=== PATIENT | male | born 1980 | race Caucasian/White ===

== ENCOUNTER → 2020-03-18 | Outpatient (CLI) | payer BC, OTHER ==
[~2020-03-18] MED LIST: AMBIEN 10 MG TA10 MG PO; IMITREX100 MG PO; OMEPRAZOLE 20 M20 M1 PO; ZOLOFT25 MG PO
== END ==
LOC: LAB 07:35 → EDSTATUS 08:57 → LAB 14:57
PROVIDERS: ATTEND Student in an Organized Health Care Education/Training Program
DX: Z01.818 Encounter for other preprocedural examination (principal); Z11.59 Encounter for screening for other viral diseases

== ENCOUNTER 2020-03-23 06:15 | Day surgery (SDC) | payer BC, OTHER ==
[~2020-03-23] VITALS: Ht 188 cm; Wt 137.0 kg
[2020-03-23 07:44] VITALS: BP 145/98
[2020-03-23 09:11] VITALS: BP 145/98
--- NOTE | 2020-03-26 07:31 | O ---
[address] [address] OPERATIVE REPORT Name: DASIA BLOOM Room #: DEP [facility]..#: [id number] Admission: 03/23/20 Attend Phys: Jesse Stahl MD Discharge: 03/23/20 Date of : 84 Report #: [id number] THIS REPORT FOR: cc: Christiane Ayala MD, Karen A. MD McCabe,Jesse Agosto MD ~ CC: Christiane Stahl DATE OF SERVICE: 03/23/2020 SERVICE: Orthopedics. FACILITY: [facility]. SURGEON: Jesse Stahl M.D. [employer]W SUPERVISOR: Melanie Gomez N.P. PREOPERATIVE DIAGNOSES: 1. Left knee pain. 2. Left knee chondromalacia. 3. Left knee parameniscal cyst. POSTOPERATIVE DIAGNOSES: 1. Left knee pain. 2. Left knee chondromalacia. 3. Left knee parameniscal cyst. 4. Left knee medial plica. PROCEDURES: 1. Left knee arthroscopy with parameniscal cyst decompression, chondroplasty and cartilage biopsy. 2. Left knee arthroscopic meniscal cyst decompression. COMPLICATIONS: None. DRAINS: None. SPECIMENS: Articular cartilage for ROSELYN. FINDINGS: 1. Medial plica resected. 2. Anterior medial synovial cyst excised with the anterior fat pad. 3. Intact medial compartment. 4. Intact lateral femoral condyle and lateral meniscus with a fissure and grade [address] [address] OPERATIVE REPORT Name: DASIA BLOOM Room #: DEP [facility].#: [id number] Admission: 03/23/20 Attend Phys: Jesse Stahl MD Discharge: 03/23/20 Date of : 84 Report #: [id number] 1 and grade 2 chondromalacia of the lateral tibial plateau at the downslope of the lateral tibial spine. 5. Extensive grade 3 articular cartilage damage to the patellofemoral joint. 6. Trochlear defect: 2.5 cm x 2 cm. Patellar defect: 2.5 cm x 3.5 cm. This pairing of articular cartilage lesions based on geometry will require 2 ROSELYN implants based on surface area. The geometry of these lesions will not allow for 2 grafts to be successfully taken from a single ROSELYN implant. Our preoperative plan will therefore require 2 implants to be produced and authorized. 7. Normal patellar tracking. HISTORY: The patient is a gentleman who is a former member of [place] who sustained a traumatic injury to his knee when he fell off of a [place] with his shetty gear on. He has had knee problems since. He had preoperative imaging, which was consistent with articular cartilage pathology of the patella as well as the trochlea. He had previous arthroscopy with insufficient relief and has had many months and years of physical therapy as well as intraarticular injections including cortisone and platelet-rich plasma. He has had oral medicines and modalities, all these provided insufficient relief and he still had lifestyle limiting left knee pain and was interested in surgical treatment. He had previously been recommended consideration of arthroplasty, but he does not have osteoarthritis. We advised against that for him due to his young age and his lack of osteoarthritis. His diagnosis is high-grade chondromalacia and he is a good candidate for possible staged cartilage reconstruction procedure. Risks, benefits, alternatives, and indication of surgery were discussed with him in detail. Risks include but not limited to pain, bleeding, infection, injury to nerves or blood vessels, persistent pain despite surgical intervention, failure of any repairs, progression of preexisting chondral injury, stiffness, need for further surgery as well as complications related to anesthesia such as stroke, heart attack, pulmonary complications, thromboembolic disease and . Despite these risks, he wished to proceed. PROCEDURE IN DETAIL: After the left lower extremity was correctly identified as the operative extremity, the patient was taken to the operating room and general anesthesia with LMA was induced without complications. He was padded appropriately. Prophylactic antibiotics were administered at appropriate time. Tourniquet was applied to the left leg. Left lower extremity was then prepped and draped in standard sterile fashion. Time-out procedure was performed. Esmarch was used. Tourniquet inflated to 300 mmHg. Standard anterolateral viewing portal was established followed by anteromedial working portal. Diagnostic arthroscopy revealed the above findings. There was some synovitis, which was treated with synovectomy and then a shaver was used to perform chondroplasty of the patella and the trochlea. The ACL was intact. There was significant fat pad at the anterior aspect of the knee and this was [address] [address] OPERATIVE REPORT Name: WOLFDASIA Room #: DEP [facility] [place]#: [id number] Admission: 03/23/20 Attend Phys: Jesse Stahl MD Discharge: 03/23/20 Date of : 84 Report #: [id number] resected, allowing visualization of the soft tissues anterior to the anterior horn of the meniscus where the parameniscal cyst was located. A puff of yellow fluid was noted as the tissues being resected and all tissue in the location of the cyst was successfully debrided with the shaver. The medial meniscus was normal as was the medial femoral condyle and medial tibial plateau. The lateral compartment was visualized and there was the pathology of the more medial portion of the lateral tibial plateau, but there were no full thickness lesions and the lateral femoral condyle was very healthy as was the lateral meniscus. After the synovectomy was completed, we placed the knee into extension and completed a chondroplasty working with a shaver and both the medial and the lateral portals and took final measurements of the articular cartilage lesion of both the patella and the femoral trochlea. The knee was then flexed to 90 degrees and a sharp curved quarter inch osteotome was used to obtain an osteochondral biopsy from the lateral wall of the intercondylar notch and this was removed and sent in the harvest medium for planned staged matrix based autologous chondrocyte implantation. After this was completed, the debridement was then finalized and the arthroscopic effusion was drained, instruments were removed. Portal sites were closed. Sterile dressing was applied, compression stocking applied. The patient was awakened from anesthesia and taken to recovery room in stable condition. No complications. All counts were recorded as correct. The postoperative plan will be to proceed with rehab in a typical fashion and then we will reassess his progress. Stage 2 will entail articular cartilage grafting of the patella and the trochlea. There was no evidence of patellar instability or maltracking, so no plans for osteotomy as a result. <ELECTRONICALLY SIGNED> By: Jesse Stahl MD 03/26/20 0731 [id number] Jesse Stahl MD /nt
== END 2020-03-23 09:57 | disposition home or self-care (01) ==
LOC: OR 06:15 → TBA 06:24 → OR 09:57
PROVIDERS: ATTEND Orthopaedic Surgery Sports Medicine
DX: M25.562 Pain in left knee (principal); M94.262 Chondromalacia, left knee; M65.862 Other synovitis and tenosynovitis, left lower leg; M71.38 Other bursal cyst, other site; M67.52 Plica syndrome, left knee; G43.909 Migraine, unspecified, not intractable, without status migrainosus; F32.9 Major depressive disorder, single episode, unspecified; G47.30 Sleep apnea, unspecified; K21.9 Gastro-esophageal reflux disease without esophagitis; Z98.890 Other specified postprocedural states; Z79.899 Other long term (current) drug therapy
CPT/HCPCS: 50010; 50101; 50405; 56527; 57103; 57180; 62110; 62900; 70005